=== PATIENT | female | born 1995 | race Caucasian/White ===

== ENCOUNTER 2020-03-04 15:52 | Observation (INO) | payer OTHER ==
[2020-03-04 16:28] LABS: Hematocrit 38.5 % (35-47); Hemoglobin 12.9 gm/dl (12.0-16.0); Mean Cell Volume 89.5 fl (78-100); Mean Corpuscular Hgb Concent. 33.5 g/dl (32-36); Platelet Count 179 K/mm3 (150-450); Red Cell Distribution Width 13.5 % (11.5-14.0)
--- NOTE | 2020-03-04 16:59 | XRAY ---
Indication: Evaluate DARCIE. Hypertension. Limited OB ultrasound demonstrates single viable intrauterine with heart rate 161 BPM. Four-quadrant DARCIE is 14.8 cm. DARCIE was 14.3 cm on February 25, 2020.
[2020-03-04 17:05] LABS: ALBUMIN 3.4 g/dL (3.5-5.0); ALKALINE PHOSPHATASE 166 U/L (38-126); ANION GAP 9.7 MEQ/L (5-15); BLOOD UREA NITROGEN 8 mg/dL (7-17); CHLORIDE 108 mmol/L (98-107); Calcium 9.6 mg/dL (8.4-10.2); Carbon Dioxide 22 mmol/L (22-30); Creatinine 1 0.46 mg/dL (0.52-1.04); EST GLOMERULAR FILTRATION RATE > 60.0 ML/MIN; Glucose 94 mg/dL (74-106); Potassium 3.7 mmol/L (3.5-5.1); SGOT/AST 25 U/L (14-36); SGPT/ALT 19 U/L (0-35); SODIUM 136 mmol/L (137-145); Total Protein 6.4 g/dL (6.3-8.2); Uric Acid 4.6 mg/dL (2.6-6.0)
[2020-03-04 17:44] VITALS: BP 134/59; PULSE 73
== END 2020-03-04 17:53 | disposition home or self-care (01) ==
LOC: OB 15:52
PROVIDERS: ADMIT Family Medicine; ATTEND Family Medicine
DX: O16.3 Unspecified maternal hypertension, third trimester (principal); Z3A.31 31 weeks gestation of pregnancy
CPT/HCPCS: 36415; 59025; 76815; 80053; 84550; 85027; G0378

== ENCOUNTER 2020-03-26 15:09 | Observation (INO) | payer OTHER ==
--- NOTE | 2020-03-26 16:45 | XRAY ---
Indication: Evaluate DARCIE. Limited OB ultrasound performed to evaluate DARCIE. Four-quadrant DARCIE is 6.2 cm with largest pocket 2.5 cm. This was 14.8 cm on March 04, 2020.
[2020-03-26 16:48] VITALS: PULSE 91
[2020-03-26 16:49] VITALS: BP 157/90
== END 2020-03-26 16:45 | disposition home or self-care (01) ==
LOC: OB 15:09
PROVIDERS: ADMIT Family Medicine; ATTEND Family Medicine
DX: O16.3 Unspecified maternal hypertension, third trimester (principal)
CPT/HCPCS: 59025; 76815; G0378

== ENCOUNTER 2020-04-02 11:18 | Observation (INO) | payer OTHER ==
[2020-04-02 13:22] VITALS: BP 147/90; PULSE 80
--- NOTE | 2020-04-02 13:54 | XRAY ---
Indication: Evaluate DARCIE. Hypertension. Limited OB ultrasound performed to evaluate DARCIE. Single intrauterine with heart rate 165 BPM. Four-quadrant DARCIE is 6.1 cm with largest pocket 3.7 cm. DARCIE was 6.2 cm March 26, 2020.
== END 2020-04-02 13:45 | disposition home or self-care (01) ==
LOC: OB 12:31
PROVIDERS: ADMIT Family Medicine; ATTEND Family Medicine
DX: O16.3 Unspecified maternal hypertension, third trimester (principal)
CPT/HCPCS: 59025; 76815; G0378

== ENCOUNTER 2020-04-06 13:17 | Inpatient (IN) | payer OTHER ==
[2020-04-06 14:09] LABS: Appearance CLOUDY (CLEAR); Bacteria MODERATE /HPF (NEGATIVE); Bilirubin NEGATIVE (NEGATIVE); Blood SMALL Ery/ul (0-5); Epithelial Cells MANY /HPF (FEW); Glucose NEGATIVE (NEGATIVE); Ketones NEGATIVE (NEGATIVE); Leukocyte Esterase NEGATIVE (NEGATIVE); Mucus SLIGHT /HPF (NEGATIVE); Nitrite NEGATIVE (NEGATIVE); Non-Squamous Epithelial Cells RARE /HPF (FEW); Protein,Urine Dip >=500 (Negative); Specific Gravity 1.032 (1.005-1.025); Urobilinogen NEGATIVE mg/dL (0-1); WBC 51-100 /HPF (0-5)
[2020-04-06] MEDS ORDERED: Trandate 100 MG PO ONE (14:18)
[2020-04-06 14:42] LABS: Absolute Neutrophil Ct (ANC) 8.36 (1.4-6.9); BASOPHIL % 0.3 % (0.0-0.4); Basophil (Absolute #) 0.03 (0-0.4); Eosinophil % 0.3 % (0.00-5.0); Eosinophil (Absolute #) 0.03 (0-0.5); Hematocrit 35.1 % (35-47); Hemoglobin 11.2 gm/dl (12.0-16.0); Lymphocyte (Absolute #) 1.14 (1.0-4.6); Lymphocytes % 10.8 % (24.0-44.0); Mean Cell Volume 91.6 fl (78-100); Mean Corpuscular Hemoglobin 29.2 pg (26-32); Mean Corpuscular Hgb Concent. 31.9 g/dl (32-36); Mean Platelet Volume 12.3 fl (7.5-11.0); Monocytes % 9.5 % (0.0-12.0); Neutrophil % 79.1 % (36.0-66.0); Platelet Count 84 K/mm3 (150-450); Red Blood Count 3.83 M/mm3 (4.1-5.4); Red Cell Distribution Width 13.6 % (11.5-14.0); White Blood Count 10.6 K/mm3 (4.0-10.5)
[2020-04-06 14:52] LABS: ALBUMIN 2.7 g/dL (3.5-5.0); ALKALINE PHOSPHATASE 263 U/L (38-126); ANION GAP 8.1 MEQ/L (5-15); BLOOD UREA NITROGEN 14 mg/dL (7-17); CHLORIDE 110 mmol/L (98-107); Calcium 8.8 mg/dL (8.4-10.2); Carbon Dioxide 23 mmol/L (22-30); Creatinine 1 0.58 mg/dL (0.52-1.04); EST GLOMERULAR FILTRATION RATE > 60.0 ML/MIN; Glucose 82 mg/dL (74-106); SGOT/AST 106 U/L (14-36); SGPT/ALT 97 U/L (0-35); SODIUM 137 mmol/L (137-145); Total Protein 5.3 g/dL (6.3-8.2)
[2020-04-06 15:43] LABS: Slide Review 1 YES
[2020-04-06] MEDS ORDERED: Lactated Ringers 1,000 ML IV ONE (15:47)
[2020-04-06] MEDS ORDERED: SOD CITRATE-CITRIC ACID SOLN PO ONE (15:47)
[2020-04-06 15:58] LABS: INR 1.05 (0.8-3.0); PROTIME 11.9 SECONDS (9.95-12.35)
[2020-04-06 16:00] LABS: PTT 28.8 SECONDS (25.3-37.0)
[2020-04-06] MEDS ORDERED: Lactated Ringers 1,000 ML IV SCH ×2 (16:00)
[2020-04-06] MEDS ORDERED: CEFAZOLIN 2 GM-D5W BAG** 2 GM/50 ML ML IV SCH (16:00)
[2020-04-06] MEDS ORDERED: Reglan 10 MG/2 ML IV SCH (16:00)
[2020-04-06] MEDS ORDERED: Pepcid 20 MG VIAL IV SCH (16:00)
[2020-04-06 16:14] LABS: Amphetamine,Urine NEGATIVE (NEGATIVE); Barbiturate,Urine NEGATIVE (NEGATIVE); Benzodiazepine,Urine NEGATIVE (NEGATIVE); Cocaine,Urine NEGATIVE (NEGATIVE); Methadone,Urine NEGATIVE (NEGATIVE); Opiate,Urine NEGATIVE (NEGATIVE); PCP,Urine NEGATIVE (NEGATIVE); THC,Urine NEGATIVE (NEGATIVE)
[2020-04-06] MEDS ORDERED: Zemuron 100 MG/10 ML ONE (16:46)
[2020-04-06] MEDS ORDERED: Quelicin Fliptop 200 MG/10 ML ONE (16:46)
[2020-04-06] MEDS ORDERED: DIPRIVAN 200 MG/20 ML IV ONE (16:46)
[2020-04-06] MEDS ORDERED: SUBLIMAZE 250 MCG/5 ML ONE (16:47)
[2020-04-06 16:48] LABS: ABO TYPING O; Antibody Screen NEGATIVE (NEGATIVE); RH TYPING POSITIVE
[2020-04-06] MEDS ORDERED: Pitocin 10 UNITS/ML ONE (17:08)
[2020-04-06] MEDS ORDERED: Marcaine 0.5%/Epinephrine 10 ML ONE (17:17)
[2020-04-06] MEDS ORDERED: MARCAINE 0.5%-EPI 1:200,000 VL IJ ONE (17:17)
[2020-04-06] MEDS ORDERED: BRIDION 200MG/2ML IV ONE (17:20)
[2020-04-06] MEDS ORDERED: Decadron 4 MG INJ ONE (17:33)
[2020-04-06] MEDS ORDERED: Zofran 4 MG/2 ML VIAL ONE (17:33)
[2020-04-06] MEDS ORDERED: TORAdol 30 mg Injection ONE (17:34)
[2020-04-06 17:49] LABS: Appearance SLIGHTLY CLOUDY (CLEAR); Bilirubin NEGATIVE (NEGATIVE); Blood SMALL Ery/ul (0-5); Glucose NEGATIVE (NEGATIVE); Ketones SMALL (NEGATIVE); Leukocyte Esterase NEGATIVE (NEGATIVE); Mucus SLIGHT /HPF (NEGATIVE); Nitrite NEGATIVE (NEGATIVE); Protein,Urine Dip >=500 (Negative); Specific Gravity 1.031 (1.005-1.025); Urobilinogen NEGATIVE mg/dL (0-1)
[2020-04-06] MEDS ORDERED: TRANDATE 20 MG/4 ML SYRINGE IV PRN (18:03)
[2020-04-06] MEDS ORDERED: SUBLIMAZE 100 MCG/2 ML ONE (18:05)
[2020-04-06] MEDS ORDERED: Hydromorphone 1 mg/ml Injection ONE (18:05)
[2020-04-06] MEDS ORDERED: Dulcolax 10 MG SUPP PR PRN (18:14)
[2020-04-06] MEDS ORDERED: CORTISONE 1% CREAM TP PRN (18:14)
[2020-04-06] MEDS ORDERED: Anucort-HC SUPPOSITORY PR PRN (18:14)
[2020-04-06] MEDS ORDERED: Phenergan 25 MG INJ IM PRN (18:14)
[2020-04-06] MEDS ORDERED: LANSINOH 40 GM TOP PRN (18:14)
[2020-04-06] MEDS ORDERED: TYLENOL EXTRA STRENGTH 500 MG PO PRN (18:14)
[2020-04-06] MEDS ORDERED: Ambien 10 MG PO PRN (18:14)
[2020-04-06] MEDS ORDERED: TUCKS TP PRN (18:14)
[2020-04-06] MEDS ORDERED: DILAUDID 1 MG/1ML PCA IV PRN (19:10)
[2020-04-06] MEDS: Dextrose 5%-Lr IV Solution 1000 ML 1,000 ML IV SCH (19:30)
[2020-04-06] MEDS: Magnesium Sulfate 40 Gm/1000 Ml H2O Premix*** 1,000 ML IV SCH (19:58)
[2020-04-06] MEDS: Colace 100 MG PO SCH (22:00)
[2020-04-07 05:25] LABS: BASOPHIL % 0.2 % (0.0-0.4); Basophil (Absolute #) 0.03 (0-0.4); Eosinophil (Absolute #) 0 (0-0.5); Hematocrit 31.2 % (35-47); Hemoglobin 9.8 gm/dl (12.0-16.0); Lymphocyte (Absolute #) 1.06 (1.0-4.6); Lymphocytes % 7.7 % (24.0-44.0); Mean Cell Volume 93.4 fl (78-100); Mean Corpuscular Hemoglobin 29.3 pg (26-32); Mean Corpuscular Hgb Concent. 31.4 g/dl (32-36); Mean Platelet Volume 12.5 fl (7.5-11.0); Monocyte (Absolute #) 1.15 (0.0-1.3); Monocytes % 8.4 % (0.0-12.0); Neutrophil % 83.7 % (36.0-66.0); Platelet Count 87 K/mm3 (150-450); Red Blood Count 3.34 M/mm3 (4.1-5.4); White Blood Count 13.7 K/mm3 (4.0-10.5)
[2020-04-07 05:36] LABS: INR 1.04 (0.8-3.0); PROTIME 11.8 SECONDS (9.95-12.35)
[2020-04-07 05:42] LABS: ALBUMIN 2.4 g/dL (3.5-5.0); ALKALINE PHOSPHATASE 223 U/L (38-126); ANION GAP 6.6 MEQ/L (5-15); BLOOD UREA NITROGEN 13 mg/dL (7-17); CHLORIDE 107 mmol/L (98-107); Calcium 7.2 mg/dL (8.4-10.2); Carbon Dioxide 22 mmol/L (22-30); Creatinine 1 0.57 mg/dL (0.52-1.04); EST GLOMERULAR FILTRATION RATE > 60.0 ML/MIN; Glucose 126 mg/dL (74-106); Potassium 4.6 mmol/L (3.5-5.1); SGOT/AST 80 U/L (14-36); SGPT/ALT 87 U/L (0-35); SODIUM 132 mmol/L (137-145); Total Protein 4.9 g/dL (6.3-8.2)
[2020-04-07] MEDS ORDERED: Adacel Vial IM ONE (07:00)
[2020-04-07 08:00] LABS: Slide Review 1 YES
[2020-04-07] MEDS ORDERED: M-M-R II Vaccine With Diluent SQ ONE (09:00)
[2020-04-07] MEDS: Magnesium Sulfate 40 Gm/1000 Ml H2O Premix*** 1,000 ML IV SCH (09:22)
[2020-04-07] MEDS: Dextrose 5%-Lr IV Solution 1000 ML 1,000 ML IV SCH (09:22)
[2020-04-07] MEDS: Colace 100 MG PO SCH ×2 (11:44→22:13)
[2020-04-07] MEDS: FERREX 150 PO SCH (11:44)
[2020-04-07] MEDS: NORCO 5/325 MG PO PRN ×2 (18:16→22:13)
[2020-04-07] MEDS: Mylicon 80MG PO PRN (20:47)
[2020-04-07] MEDS: MOTRIN 400 MG PO PRN (20:47)
[2020-04-08] MEDS: MOTRIN 400 MG PO PRN ×3 (02:22→19:36)
[2020-04-08] MEDS: NORCO 5/325 MG PO PRN ×5 (02:23→22:03)
[2020-04-08 04:59] LABS: Absolute Neutrophil Ct (ANC) 6.26 (1.4-6.9); BASOPHIL % 0.1 % (0.0-0.4); Basophil (Absolute #) 0.01 (0-0.4); Eosinophil % 1.6 % (0.00-5.0); Eosinophil (Absolute #) 0.15 (0-0.5); Hematocrit 27.3 % (35-47); Hemoglobin 8.4 gm/dl (12.0-16.0); Lymphocyte (Absolute #) 1.87 (1.0-4.6); Lymphocytes % 20.5 % (24.0-44.0); Mean Cell Volume 95.8 fl (78-100); Mean Corpuscular Hemoglobin 29.5 pg (26-32); Mean Corpuscular Hgb Concent. 30.8 g/dl (32-36); Mean Platelet Volume 12.7 fl (7.5-11.0); Monocyte (Absolute #) 0.85 (0.0-1.3); Monocytes % 9.3 % (0.0-12.0); Neutrophil % 68.5 % (36.0-66.0); Platelet Count 74 K/mm3 (150-450); Red Blood Count 2.85 M/mm3 (4.1-5.4); Red Cell Distribution Width 14.2 % (11.5-14.0); White Blood Count 9.1 K/mm3 (4.0-10.5)
[2020-04-08 05:37] LABS: Slide Review 1 YES
[2020-04-08 05:43] LABS: ALBUMIN 2.4 g/dL (3.5-5.0); ALKALINE PHOSPHATASE 183 U/L (38-126); ANION GAP 5.4 MEQ/L (5-15); BLOOD UREA NITROGEN 12 mg/dL (7-17); CHLORIDE 106 mmol/L (98-107); Carbon Dioxide 26 mmol/L (22-30); Creatinine 1 0.64 mg/dL (0.52-1.04); EST GLOMERULAR FILTRATION RATE > 60.0 ML/MIN; Glucose 77 mg/dL (74-106); Potassium 3.9 mmol/L (3.5-5.1); SGOT/AST 39 U/L (14-36); SGPT/ALT 55 U/L (0-35); SODIUM 133 mmol/L (137-145); Total Protein 4.8 g/dL (6.3-8.2)
[2020-04-08] MEDS: FERREX 150 PO SCH (08:27)
[2020-04-08] MEDS: Colace 100 MG PO SCH ×2 (08:27→22:03)
[2020-04-08] MEDS: Mylicon 80MG PO PRN ×2 (08:27→19:36)
--- NOTE | 2020-04-08 09:06 | OP ---
SURGERY DATE/TIME: 04/06/2020 4165 PREOPERATIVE DIAGNOSIS: Intrauterine at 36 weeks and 2 days gestation with preeclampsia with HELLP syndrome remote from delivery. POSTOPERATIVE DIAGNOSIS: Intrauterine at 36 weeks and 2 days gestation with preeclampsia with HELLP syndrome remote from delivery with a non-inducible cervix. PROCEDURE: Repeat section, low flap transverse uterine incision, Pfannenstiel skin incision. SURGEON: Gallo Smiley D.O. SET PAINTER: Dr. Mark Alexandre. ANESTHESIA: General. ESTIMATED BLOOD LOSS: 800 cc. COMPLICATIONS: None. INDICATIONS: The risks, benefits, indications and alternatives of the procedure were reviewed with the patient prior to procedure. The patient understood the risk of infection, bleeding, bowel injury, bladder injury, ureteral injury, uterine perforation, pelvic infection, thromboembolic disorder associated with this procedure however desires to have this procedure as a possible means to alleviate her current medical condition. DESCRIPTION OF PROCEDURE AND FINDINGS: At this point the patient is taken to the operating room where her general anesthesia was found to adequate. She was then prepped and draped in normal sterile fashion in the dorsal supine position with leftward tilt. A Pfannenstiel skin incision made with a scalpel and carried through to the underlying layer with a Bovie. The fascia was then incised in the midline and the incision extended laterally with a Bovie. The superior aspect of the fascial incision was then grasped Maru clamps elevated and the underlying rectus muscles dissected off bluntly. Attention is then turned to the inferior aspect of this incision which in similar fashion was grasped, tented up with Maru clamps and the rectus muscles dissected off bluntly. The rectus muscles were then at the midline and the peritoneum identified, tented up and entered sharply with Metzenbaum scissors. The peritoneal incision was then extended superiorly and inferiorly with good visualization of the bladder. The bladder blade was then inserted and at this point an incision was made on the lower segment of the uterus where in transverse fashion incision was made with a scalpel. The uterine incision was then extended laterally digitally. The bladder blade was then removed and the 's head was delivered atraumatically. The nose and mouth were suctioned with the suction bulb. The cord was clamped and cut. The infant was handed off to the awaiting nurses. The placenta was then removed manually. The uterus exteriorized and cleared of all clots and debris. The uterine incision was repaired with 1-0 chromic in a running locked fashion. A second layer of the same suture was used to obtain excellent hemostasis. From this point the uterus is then returned to the abdomen. The gutters were cleared of all clots and the peritoneal muscle was closed in interrupted fashion using 2-0 chromic suture. The fascia was re-approximated with 0 Vicryl in running fashion. The subcutaneous layer was closed with 3-0 Vicryl suture. The skin was closed with absorbable donny called INSORB. The patient tolerated the procedure well. Sponge, lap, needle and instrument counts were correct x2. The patient was then taken to the recovery room in stable condition. The patient delivered a live baby boy at 1706 hours. 's were 7 at 1 minute and 9 at 5 minutes and the delivery weight was 5 pounds 6 ounces.
[2020-04-09] MEDS: NORCO 5/325 MG PO PRN ×3 (02:01→12:23)
[2020-04-09] MEDS: MOTRIN 400 MG PO PRN ×2 (02:03→10:33)
[2020-04-09 04:54] LABS: Absolute Neutrophil Ct (ANC) 6.51 (1.4-6.9); BASOPHIL % 0.2 % (0.0-0.4); Basophil (Absolute #) 0.02 (0-0.4); Eosinophil % 1.5 % (0.00-5.0); Eosinophil (Absolute #) 0.14 (0-0.5); Hematocrit 26.8 % (35-47); Hemoglobin 8.2 gm/dl (12.0-16.0); Lymphocytes % 19.4 % (24.0-44.0); Mean Cell Volume 96.1 fl (78-100); Mean Corpuscular Hemoglobin 29.4 pg (26-32); Mean Corpuscular Hgb Concent. 30.6 g/dl (32-36); Mean Platelet Volume 12.4 fl (7.5-11.0); Monocytes % 8.6 % (0.0-12.0); Neutrophil % 70.3 % (36.0-66.0); Platelet Count 88 K/mm3 (150-450); Red Blood Count 2.79 M/mm3 (4.1-5.4); White Blood Count 9.3 K/mm3 (4.0-10.5)
[2020-04-09 05:35] LABS: ALBUMIN 2.5 g/dL (3.5-5.0); BLOOD UREA NITROGEN 12 mg/dL (7-17); Glucose 77 mg/dL (74-106); SGOT/AST 35 U/L (14-36)
[2020-04-09 08:32] LABS: ALKALINE PHOSPHATASE 155 U/L (38-126); ANION GAP 7.1 MEQ/L (5-15); CHLORIDE 109 mmol/L (98-107); Carbon Dioxide 25 mmol/L (22-30); Creatinine 1 0.63 mg/dL (0.52-1.04); EST GLOMERULAR FILTRATION RATE > 60.0 ML/MIN; Potassium 4.2 mmol/L (3.5-5.1); SGPT/ALT 46 U/L (0-35); SODIUM 137 mmol/L (137-145); Total Protein 5.1 g/dL (6.3-8.2)
[2020-04-09 08:33] LABS: Slide Review 1 YES
--- NOTE | 2020-04-09 08:35 | PCM.DS ---
Discharge Summary Date of Admission: 04/06/20 15:48 Admitting Physician: ARMEN SAWYER Consults: Consults on Case 04/06/20 15:43 Notify Physician ROUTINE 04/06/20 15:47 Notify Anesthesia Provider ROUTINE Notify Physician OF ADMISSION Primary Care Provider: ARMEN SAWYER Allergies Allergies No Known Drug Allergies Allergy (Verified 04/06/20 21:45) Hospital Summary - Hospital Course Hospital Course: patient presented at 36 wks with low back pain, preeclampsia and HELLP syndrome therefore had primary . has done well postoperatively, bp is much improved following delivery and not requiring medication. LFT's improved, platelet count has been stable and slightly improved since delivery. tolerating po intake, mild lochia - Vitals & Intake/Output Vital Signs: Vital Signs Temperature 98.1 F 04/09/20 05:00 Pulse Rate 93 H 04/09/20 05:00 Respiratory Rate 18 04/09/20 05:00 Blood Pressure 144/78 04/09/20 05:00 O2 Sat by Pulse Oximetry 98 04/09/20 05:00 Intake & Output: Intake & Output 04/06/20 04/07/20 04/08/20 04/09/20 11:59 11:59 11:59 11:59 Intake Total 2588 2829 650 Output Total 1290 2425 Balance 1298 404 650 Weight 124.738 kg - Lab Result Diagrams: 04/09/20 04:00 04/08/20 04:20 Lab Results-Last 24 Hrs: Lab Results-Last 24 Hours 04/09/20 Range/Units 04:00 WBC 9.3 (4.0-10.5) K/mm3 RBC 2.79 L (4.1-5.4) M/mm3 Hgb 8.2 L (12.0-16.0) gm/dl Hct 26.8 L (35-47) % MCV 96.1 (78-100) fl MCH 29.4 (26-32) pg MCHC 30.6 L (32-36) g/dl RDW 14.0 (11.5-14.0) % Plt Count 88 L (150-450) K/mm3 MPV 12.4 H (7.5-11.0) fl Gran % 70.3 H (36.0-66.0) % Eos # (Auto) 0.14 (0-0.5) Absolute Lymphs (auto) 1.80 (1.0-4.6) Absolute Monos (auto) 0.80 (0.0-1.3) Lymphocytes % 19.4 L (24.0-44.0) % Monocytes % 8.6 (0.0-12.0) % Eosinophils % 1.5 (0.00-5.0) % Basophils % 0.2 (0.0-0.4) % Absolute Granulocytes 6.51 (1.4-6.9) Basophils # 0.02 (0-0.4) Micro Results-Entire Visit: Microbiology 04/06/20 16:55 Urine Culture - Final Catherized NO GROWTH 04/06/20 13:52 Urine Culture - Final Urine, Void MIXED RANJITH; 3 OR MORE TYPES. NO PREDOMINANT ORGANISM. NO FURTHER WORKUP. PLEASE RESUBMIT IF CLINICALLY INDICATED. - Procedures and Test Procedures and Tests throughout Hospitalization: Therapy Orders & Screens 04/06/20 17:26 Standby STAT Comment: Diagnosis: IUP Discharge Exam General Appearance: no apparent distress, obese Neurologic Exam: alert, oriented x 3 Respiratory Exam: normal breath sounds, lungs clear, No respiratory distress Cardiovascular Exam: regular rate/rhythm, normal heart sounds Gastrointestinal/Abdomen Exam: soft, other (incision steri-strips are blood tinged, incision appears intact. no surrounding erythema, no drainage), No tenderness, No mass Extremity Exam: normal inspection, normal range of motion Skin Exam: normal color, warm, dry Final Diagnosis/Problem List - Final Discharge Diagnosis/Problem (1) Status post primary low transverse section Current Visit: Yes Status: Acute Code(s): Z98.891 - HISTORY OF UTERINE SCAR FROM PREVIOUS SURGERY (2) Pre-eclampsia Current Visit: Yes Status: Acute Code(s): O14.90 - UNSPECIFIED PRE- ECLAMPSIA, UNSPECIFIED TRIMESTER (3) HELLP syndrome (HELLP), third trimester Current Visit: Yes Status: Acute Code(s): O14.23 - HELLP SYNDROME (HELLP), THIRD TRIMESTER - Discharge Disposition: Home, Self-Care Condition: Stable Prescriptions: New Docusate Sodium 100 mg [Colace 100 MG] 100 mg PO BID #60 capsule Iron Polysaccharides Complex [Ferrex 150] 150 mg PO DAILY #30 capsule Hydrocodone/Acetaminophen [Hydrocodone-Acetamin 5-325 mg] 1 tab PO Q6HPRN PRN #28 tablet MDD 4 PRN Reason: Pain Discontinued Vits W-Ca,Fe,FA(<1Mg) [] 1 each PO HS Follow up with: ARMEN SAWYER MD [Primary Care Provider] - 1 Week
[2020-04-09 10:07] LABS: Calcium 8.7 mg/dL (8.4-10.2)
[2020-04-09] MEDS: Colace 100 MG PO SCH (10:34)
[2020-04-09] MEDS: FERREX 150 PO SCH (10:34)
[2020-04-09 17:01] VITALS: BP 141/85; PULSE 102; O2SAT 97
== END 2020-04-09 15:40 | disposition home or self-care (01) | DRG 788 ==
LOC: OB 13:17 → UNDOADMOB 13:17 → OBSVTOIN 13:31 → INTOOBSV 13:31 → OB 13:31 → MED SURG 13:31 → INTOOBSV 15:48 → OBSVTOIN 15:48 → OB 15:48 → MED SURG 16:59 → OB 17:21
PROVIDERS: ADMIT Family Medicine; ATTEND Family Medicine
PROC: 10D00Z1 Extraction of Products of Conception, Low, Open Approach (ICD-10-PCS; principal; 2020-04-06)
DX: O14.24 HELLP syndrome, complicating childbirth (principal); Z3A.36 36 weeks gestation of pregnancy; Z37.0 Single live birth
CPT/HCPCS: 36415; 64488; 76937; 76942; 80053; 80307; 81001; 83735; 84550; 85025; 85610; 85730; 86850; 86900; 86901; 87086; 88307; 90471; 90472; 90707; 90715; 94799; 99140; G0378; J0330; J1100; J1170; J1885; J2405; J2590; J2704; J3010; L0625; A9270-GY

== ENCOUNTER 2023-07-06 21:56 | Emergency (ER) | payer OTHER ==
[2023-07-06 22:18] VITALS: TEMP 97.5
[2023-07-06 22:51] LABS: Group A Strep NOT DETECTED (NEGATIVE)
[2023-07-06 23:02] LABS: INFLUENZA A NEGATIVE (NEGATIVE); INFLUENZA B NEGATIVE (NEGATIVE); RESPIRATORY SYNCTIAL VIRUS NEGATIVE (NEGATIVE); SARS-CoV-2 Xpert Express NEGATIVE (NEGATIVE)
[2023-07-06 23:10] VITALS: BP 160/96; PULSE 85; RESP 18; O2SAT 98
[2023-07-06] MEDS ORDERED: DELTASONE 20 MG ONE (23:18)
[2023-07-06] MEDS: DELTASONE 20 MG PO ONE (23:20)
--- NOTE | 2023-07-06 23:24 | ERPHSYRPT ---
- History of Present Illness Time Seen by Provider: 07/06/23 22:06 Source: patient Exam Limitations: no limitations Patient Subjective Stated Complaint: pt states that on 07/03 she started experiencing a dry nonproductive cough that is intermittent, nasal congestion, and sore throat. states that she was seen at [facility] and was swabbed for strep which was negative. pt states she continues to have a sore throat and earlier today her temp was 100.8 Triage Nursing Assessment: pt ambulated into room 7 independently with slow steady gait after standing on scale for weight acquisition. pt is alert and oriented times three, able to move all extremities, able to speak in complete sentences with normal marie and voice, and with resp even and unlabored without use of accessory muscles. no cough noted, skin in warm, pink, dry, and intact. pt denies any other symptoms. Physician History: 28 years old female presented in the ER with complains of flulike symptoms for the last 3 days with progressive worsening. Patient reports sinus/nasal congestion, sore throat, body aches and subjective feeling of fever and chills. Patient also reports having nonproductive cough with no difficulty breathing. She was seen outpatient with negative swabs. She has a positive contact. Allergies/Adverse Reactions: No Known Drug Allergies Allergy (Verified 07/06/23 22:00) Home Medications: Norethindrone [Jencycla] 0.35 mg PO DAILY 07/06/23 [History] Hx Tetanus, Diphtheria Vaccination/Date Given: Yes (mar 2020) Hx Influenza Vaccination/Date Given: No Hx Pneumococcal Vaccination/Date Given: No Immunizations Up to Date: Yes Travel Risk - International Travel Have you traveled outside of the country in past 3 weeks: No - Emerging Infectious Disease Are you exhibiting symptoms associated with any current EIDs: No - Review of Systems Constitutional: Fever, Fatigue Eyes: No Symptoms Ears, Nose, & Throat: Nose Congestion, Sinus Drainage, Throat Pain, Throat Swelling Respiratory: Cough Cardiac: No Symptoms Abdominal/Gastrointestinal: No Symptoms Musculoskeletal: No Symptoms Neurological: No Symptoms - Past Medical History Pertinent Past Medical History: Yes Neurological History: No Pertinent History ENT History: No Pertinent History Cardiac History: Hypertension, Other Respiratory History: No Pertinent History Endocrine Medical History: No Pertinent History Musculoskeletal History: No Pertinent History GI Medical History: No Pertinent History History: No Pertinent History Psycho-Social History: Anxiety Female Reproductive Disorders: No Pertinent History Other Medical History: PIH during - Past Surgical History Past Surgical History: Yes Neuro Surgical History: No Pertinent History Cardiac: No Pertinent History Respiratory: No Pertinent History Gastrointestinal: No Pertinent History Genitourinary: No Pertinent History Musculoskeletal: No Pertinent History Female Surgical History: Section Other Surgical History: PRIMARY CSECTION DUET TO PIH HELLP SYNDROME - Female History Hx Last Menstrual Period: 06/29/23 Hx Now: No - Social History Smoking Status: Never smoker Exposure to second hand smoke: No Drug Use: none Patient Lives Alone: No - Nursing Vital Signs Nursing Vital Signs: Initial Vital Signs Temperature 97.5 F 07/06/23 22:02 Pulse Rate 70 07/06/23 22:02 Respiratory Rate 16 07/06/23 22:02 Blood Pressure 160/115 07/06/23 22:02 O2 Sat by Pulse Oximetry 98 07/06/23 22:02 Pain Scale Pain Intensity 7 - Physical Exam General Appearance: no apparent distress, alert Eye Exam: PERRL/EOMI Ears, Nose, Throat Exam: moist mucous membranes, pharyngeal erythema Neck Exam: normal inspection, non-tender, supple, full range of motion Respiratory Exam: normal breath sounds, lungs clear Cardiovascular Exam: regular rate/rhythm, normal heart sounds Gastrointestinal/Abdomen Exam: soft, normal bowel sounds Back Exam: normal inspection, normal range of motion Extremity Exam: normal inspection, normal range of motion Neurologic Exam: alert, oriented x 3, cooperative Skin Exam: normal color SpO2 Interpretation: normal SpO2: 98 O2 Delivery: Room Air Ordered Tests: Medication Summary Generic Name Dose Route Start Last Admin Trade Name Freq PRN Reason Stop Dose Admin Prednisone 60 mg 07/06/23 23:15 Prednisone 20 Mg Tablet PO 07/06/23 23:16 STAT ONE Lab/Rad Data: Laboratory Results 07/06/23 Range/Units 22:24 Influenza Type A Ag NEGATIVE (NEGATIVE) Influenza Type B Ag NEGATIVE (NEGATIVE) RSV (PCR) NEGATIVE (NEGATIVE) SARS-CoV-2 (PCR) NEGATIVE (NEGATIVE) Group A Strep Antibody NOT DETECTED (NEGATIVE) - Progress Progress: unchanged Air Movement: good Progress Note: 07/06/23 23:20 28 years old is evaluated for flulike symptoms for the last 2 to 3 days. Patient is afebrile. Lungs bilateral clear to auscultation. She has postnasal drip. She has negative flu COVID and RSV/strep. Patient is not in any distress. I believe she has viral etiology symptoms, patient is having difficulty/painful swallowing, will give her steroids and supportive care recommended. Discussed signs symptoms of worsening needing return to ER which she seems understanding. Blood Culture(s) Obtained: No Antibiotics given: No Counseled pt/family regarding: lab results, diagnosis, need for follow-up Medical Desision Making - Diagnostic Testing Diagnostic test were ordered, analyzed, and reviewed by me: Yes - Risk of complications The pt has a mod risk of morbidity or mortality based on: Need for prescription drug management - Departure Departure Disposition: Home Clinical Impression: Viral pharyngitis, Viral upper respiratory tract infection with cough Condition: Stable Critical Care Time: No Referrals: ARMEN SAWYER MD [Primary Care Provider] - Follow up with PCP 1 day Instructions: Viral Pharyngitis (DC) Additional Instructions: Take Tylenol as needed. Follow-up with primary care for reevaluation. Return to ER for any worsening. Prescriptions: Prednisone 20 mg [Deltasone 20 mg] 60 mg PO DAILY 5 Days #15 tablet
== END 2023-07-06 23:51 | disposition home or self-care (01) ==
LOC: ED 21:56
DX: J02.8 Acute pharyngitis due to other specified organisms (principal); J06.9 Acute upper respiratory infection, unspecified; R05.1 Acute cough; R09.81 Nasal congestion; M79.10 Myalgia, unspecified site; I10 Essential (primary) hypertension; Z79.52 Long term (current) use of systemic steroids; Z79.899 Other long term (current) drug therapy
CPT/HCPCS: 0241U; 87651; 99283; A9270-GY